=== PATIENT | female | born 1975 | race Two or more races ===

== ENCOUNTER 2024-11-04 01:32 | Emergency (ER) | payer OTHER, SELFPAY ==
[2024-11-04 01:36] VITALS: BMI 30.4
[2024-11-04 01:48] VITALS: BP 120/86; PULSE 82; RESP 20; TEMP 36.8; O2SAT 97
--- NOTE | 2024-11-04 02:07 | EDNOTE_ITS ---
ED Headache RME/HPI General Chief Complaint: Headache Stated Complaint: headache, R ear pain Time Seen by Provider: 11/04/24 01:52 Source: patient Arrival date/time: 11/04/24 01:32 49-year-old female presents emergency department complaining of headache and right ear pain with drainage that is been ongoing for several days. Patient denies any fever, chills, vomiting, shortness of breath, visual changes, dizziness, or any other associated symptom. Mode of arrival: ambulatory Limitations: no limitations Related Data Previous Rx's ?Medication ?Instructions ?Recorded Phenazopyridine * (PYRIDIUM *) 200 mg PO TIDPC Urinary Tract 02/23/17 Infection #6 tabs acetaminophen 500 mg capsule 500 mg PO Q6H PRN pain #3 0 caps 11/04/24 amoxicillin 875 mg tablet 875 mg PO BID 7 days #14 tab s 11/04/24 ibuprofen 800 mg tablet 800 mg PO TID PRN fever or p ain 11/04/24 #30 tabs ofloxacin 0.3 % ear drops 10 drp otic (ear) QDAY 7 day s #5 mL 11/04/24 Allergies Allergy/AdvReac Type Severity Reaction Status Date / Time No Known Allergies Allergy Unknown Uncoded 04/14/19 12:20 Review of Systems Review of Systems Systems Reviewed: All systems reviewed, normal except as documented Constitutional Constitutional: Reports system reviewed and no additional complaints, except as documented, Denies body ache(s), Denies chills, Denies fever(s) and Reports headache(s) Eyes Eyes: Reports system reviewed and no additional complaints, except as documented and Denies change in vision ENT Ears, Nose, Mouth, and Throat: Reports system reviewed and no additional complaints, except as documented, Denies disequilibrium, Denies dizziness, Reports ear discharge, Reports otalgia, Reports headache(s), Denies sore throat and Denies vertigo Cardiovascular Cardiovascular: Reports system reviewed and no additional complaints, except as documented, Denies chest pain and Denies dyspnea Respiratory Respiratory: Reports system reviewed and no additional complaints, except as documented, Denies chest congestion, Denies cough and Denies dyspnea Gastrointestinal Gastrointestinal: Reports system reviewed and no additional complaints, except as documented, Denies abdominal pain, Denies nausea and Denies vomiting Musculoskeletal Musculoskeletal: Reports system reviewed and no additional complaints, except as documented, Denies abnormal gait and Denies arthralgias Integumentary/Breasts Skin/Breast: Reports system reviewed and no additional complaints, except as doc umented, Denies erythema, Denies rash and Denies wounds Neurologic Neurologic: Reports system reviewed and no additional complaints, except as documented, Denies abnormal gait, Denies disequilibrium, Denies dizziness, Reports headache(s) and Denies vertigo Past Medical History Past Medical History CARDIAC: Negative Congestive Heart Failure RESPIRATORY: Negative Chronic Obstructive Pulmonary Disease (COPD) GENITOURINARY: Negative Renal Disease ENDOCRINE: Negative Diabetes Mellitus Type 1 or Diabetes Mellitus Type 2 Social History SMOKING STATUS: Never smoker ED Exam General Limitations: Present no limitations General appearance: Present alert and in no apparent distress Head Head exam: Present atraumatic Eye Eye exam: Present normal appearance, PERRL and EOMI ENT ENT exam: Present normal exam, normal oropharynx and mucous membranes moist Expanded ENT Exam External ear exam: Present normal external inspection TM/Canal exam: Right TM: erythema, bulging, canal discharge and canal tenderness Neck Neck exam: Present normal inspection, full ROM and trachea midline Chest Chest inspection: Present normal inspection and symmetric chest wall rise Respiratory Respiratory exam: Present normal lung sounds bilaterally Cardiovascular Cardiovascular exam: Present regular rate, normal rhythm and normal heart sounds Abdominal Exam Abdominal exam: Present soft and normal bowel sounds Extremities Exam Extremities exam: Present normal inspection and full ROM Back Exam Back exam: Present normal inspection and full ROM Neurological Exam Neurological exam: Present alert, oriented X3 and CN II-XII intact Psychiatric Psychiatric exam: Present normal affect and normal mood Skin Skin exam: Present warm, dry, intact and normal color Course Quality Measures none Orders Category Date Time Status HYDROcodone*/APAP 5/325 [[place] 5/325] Med 11/04/24 02:06 Discontinued 1 tab PO X1 ONE Ketorolac Inj [Toradol Inj] Med 11/04/24 02:06 Discontinued 30 mg IM X1 ONE Vital Signs Vital signs: Vital Signs Temperature 98.2 F 11/04/24 01:48 Pulse Rate 82 11/04/24 01:48 Respiratory Rate 20 11/04/24 01:48 Blood Pressure 120/86 H 11/04/24 01:48 Pulse Oximetry (%) 97 11/04/24 01:48 Oxygen Delivery Method Room Air 11/04/24 01:48 97% room air within normal limits Headache MDM Narrative MDM Narrative:: 49-year-old female presents emergency department complaining of headache and right ear pain with drainage that is been ongoing for several days. Patient denies any fever, chills, vomiting, shortness of breath, visual changes, dizziness, or any other associated symptom. On exam patient's right ear canal erythematous with yellow-white drainage and erythema including the tympanic membrane which was also observed to be bulging we will treat with antibiotics orally and otic for otitis media and externa. Patient appears nontoxic and is hemodynamically stable. Patient data External records reviewed:: [facility] previous records Clinical information provided by:: patient Social determinants that could affect healthcare access:: none Patient has the following chronic illnesses:: None How is presenting disease/condition affected by chronic disease/condition?: no chronic disease Evaluation data The following diagnostics were reviewed and interpreted by me:: other (specify) (None) Lab and/or radiology exams considered but not ordered:: None Interpretation Summary: None Medications / Prescriptions Medications or Prescriptions considered but not ordered:: Ordered Medication administrations:: Medication Administration History Discontinued Medications Hydrocodone Bitart/Acetaminophen (Hydrocodone/Apap 5/325 Tablet) 1 tab PO X1 ONE Stop: 11/04/24 02:07 Last Admin: 11/04/24 03:18 Dose: 1 tab Documented By: MINDY Ketorolac Tromethamine (Ketorolac Inj 60 Mg/2 Ml Vial) 30 mg IM X1 ONE Stop: 11/04/24 02:07 Last Admin: 11/04/24 03:19 Dose: 30 mg Documented By: MINDY Given Consultations Consultation(s) initiated? (list below): No Diagnosis Differential diagnosis headache: migraine, tension headache, subarachnoid hemorrhage, headache, meningitis, sinusitis and postconcussion syndrome Most likely diagnosis given after review of the tests above:: Acute otitis media Otitis externa Admission Indicated Admission indicated?: not indicated Admission Request Was there a request for admission?: No Disposition Plan Disposition Plan: Discharge Discharge Attestation Discharge Attestation: The patient and all family members were given an opportunity to ask questions and understood the discharge instructions. Discharge instructions specifically effects, indications for sooner follow up or return to the emergency department, and the expected course of current diagnosis. Patient condition: Stable Discharge Plan Plan Patient Disposition: HOME (Self Care) Disposition Comment: Stable Prescriptions/Referrals Prescriptions/Med Rec: New amoxicillin 875 mg tablet 875 mg PO BID 7 Days Qty: 14 0RF ofloxacin 0.3 % drops 10 drp otic (ear) QDAY 7 Days Qty: 5 0RF ibuprofen 800 mg tablet 800 mg PO TID PRN (Reason: fever or pain) Qty: 30 0RF acetaminophen 500 mg capsule 500 mg PO Q6H PRN (Reason: pain) Qty: 30 0RF No Action Phenazopyridine * (PYRIDIUM *) 200 MG tablet 200 mg PO TIDPC Qty: 6 0RF Problem List Clinical Impression: Otitis media, Otitis externa Patient/Caregiver Discharge Instructions Discharge Activity: activity as tolerated Education Materials: ED Otitis Media Antibiotic ..., ED External Ear Infection (Adult) Additional Instructions: Take medication as prescribed. Use eardrops as prescribed. Take Tylenol or ibuprofen as needed for fever or pain. Close follow-up with primary care provider in 2 to 3 days for reevaluation of right ear. Return to emergency department for any worsening symptoms or as needed. Print Language: Nigerien Stand Alone Forms: [facility] Award Info., Patient Portal Info Letter PA/ERADICATOR Supervising Physician PA/ERADICATOR Supervising Physician: Dr. Nicole
[2024-11-04] MEDS: HYDROcodone/APAP 5/325 TABLET 1 TAB PO (03:18)
[2024-11-04] MEDS: KETOROLAC INJ 60 MG/2 ML VIAL 30 MG IM (03:19)
== END 2024-11-04 03:41 | disposition home or self-care (01) ==
LOC: SERX 02:12
PROVIDERS: Emergency Provider Emergency Medicine; PCP Nurse Practitioner Family
DX: H66.91 Otitis media, unspecified, right ear (principal); H60.91 Unspecified otitis externa, right ear; R51.9 Headache, unspecified
CPT/HCPCS: 96372; 99283; J1885; A9270

== ENCOUNTER 2025-07-17 10:35 | Emergency (ER) | payer SELFPAY ==
[2025-07-17 10:57] VITALS: BP 138/88; PULSE 80; RESP 19; TEMP 36.6; O2SAT 97; BMI 30.4
--- NOTE | 2025-07-17 11:23 | XR_ITS ---
Examination: CT abdomen and pelvis without contrast. Coronal 3-D reconstructions. Sagittal 2-D reconstructions. Date and time of exam: July 17, 2025 at 1255 hours INDICATIONS: Bilateral flank pain beginning today CTDI: vol (mGy): 19.2 DLP: (mGycm): 735 Technique: Axial images of the abdomen have been obtained, 3 mm slice thickness Intravenous contrast material has not been administered. Low dose protocols were performed. One or more of the following dose reduction techniques were used; automated exposure control, adjustment of the mA and/or KV according to patient size, use of iterative reconstruction technique. Findings: No focal liver or splenic lesions No gallstones No pancreatic or adrenal mass. Mild dilatation of the renal collecting systems with wall thickening Normal appendix Intrauterine device satisfactory position No ureteral calculi No bladder mass or bladder calculi IMPRESSION: Findings most consistent with bilateral urinary tract infection, no ureteral or bladder calculi Normal appendix
[2025-07-17 11:43] LABS: Collection Type, Urine Clean Catch
[2025-07-17 11:54] LABS: Bacteria,Urine 1+; Bilirubin,Urine Negative (Negative); Blood,Urine 2+ (Negative); Budding Yeast,Urine Present; Color,Urine Yellow (Lt Yel-Yel); Glucose, Urine Negative (Negative); Ketones,Urine Negative (Negative); Leukocyte Esterase,Urine Positive (Negative); Nitrite,Urine Negative (Negative); PH,Urine 7.0 (5.0-7.0); Protein,Urine 2+ (Neg - Trace); RBC,Urine 56 /hpf (0-3); Specific Gravity,Urine 1.016 (1.001-1.035); Squamous Epithelial Cell,Urine 2 /hpf (0-5); Urobilinogen,Urine Negative mg/dL (0.0-1.0); WBC,Urine 896 /hpf (0-5)
[2025-07-17 11:59] LABS: Clarity,Urine Cloudy (Clear/Hazy); Culture Indicated,Urine Yes
[2025-07-17 12:40] LABS: HCG Qualitative,Urine Negative
--- NOTE | 2025-07-17 13:01 | XR_ITS ---
EXAMINATION: PA chest single view TECHNIQUE: Upright PA chest single view Date and time: July 17, 2025, 1334 hours INDICATIONS: Chest pain beginning 2 days ago. FINDINGS: Normal heart size. Lungs are clear. Osseous structures are intact. IMPRESSION: No active disease
--- NOTE | 2025-07-17 13:01 | EKG_ITS ---
[facility] Test Date: 2025-07-17 Pat Name: ALESSANDRO MONZON Department: Room: - Gender: Female [employer]: : [id number] Requested By: Richy Figueredo Order Number: [id number] Reading MD: Richy Figueredo Measurements Intervals [place] Rate: 90 P: 47 DE: 164 QRS: 1 QRSD: 88 T: 59 QT: 337 QTc: 414 Interpretive Statements SINUS RHYTHM No previous ECG available for comparison /store/S0/[id number]/ecg/[id number].pdf
[2025-07-17 13:43] LABS: Basophils # (Auto) 0.0 Thou/mm3 (0.0-0.2); Basophils % (Auto) 0 % (0-2.5); Eosinophils # (Auto) 0.0 Thou/mm3 (0.0-0.5); Eosinophils % (Auto) 0 % (0-10); Hematocrit 42.5 % (36.0-46.0); Hemoglobin 13.8 g/dL (12.0-16.0); Immature Granulocytes Auto 0.01 Thou/mm3 (0.00-0.00); Lymphocytes # (Auto) 1.5 Thou/mm3 (1.0-4.8); Lymphocytes % (Auto) 18 % (10-50); Mean Corpuscular HGB Conc 32.5 g/dl (31.0-37.0); Mean Corpuscular Hemoglobin 30.1 pg (25.0-35.0); Mean Corpuscular Volume 93 fL (80-100); Monocytes # (Auto) 0.6 Thou/mm3 (0.0-0.8); Monocytes % (Auto) 7 % (0-12); Neutrophils # (Auto) 6.3 Thou/mm3 (1.8-7.7); Neutrophils % (Auto) 75 % (37-80); Nucleated Red Blood Cell # 0.00 Thou/mm3 (0.00-0.00); Nucleated Red Blood Cell % 0 /100 WBC (0); Platelet Count 231 Thou/mm3 (140-440); RDW Standard Deviation 44.2 fL (36.4-46.3); Red Blood Count 4.59 Miln/mm3 (4.00-5.20); White Blood Count 8.4 Thou/mm3 (3.6-11.0)
[2025-07-17 13:59] LABS: INR 0.9 (0.9-1.3); Partial Thromboplastin Time 29.4 Seconds (22.0-36.0); Prothrombin Time 10.0 Seconds (9.0-12.2)
[2025-07-17 14:02] LABS: Alanine Aminotransferase 22 U/L (10-49); Albumin, Serum 4.9 gm/dL (3.5-5.0); Albumin/Globulin Ratio 1.8 (1.2-2.2); Alkaline Phosphatase 108 U/L (46-116); Anion Gap 9 (7-16); Aspartate Amino Transferase 44 U/L (0-34); BUN/Creatinine Ratio 13 Ratio (12-20); Bilirubin,Total 0.3 mg/dL (0.3-1.2); Blood Urea Nitrogen 12 mg/dL (9-23); Calcium 9.6 mg/dL (8.3-10.6); Calcium (Corrected) 9.6 mg/dL (8.5-10.1); Carbon Dioxide 28.9 mMol/L (20.0-31.0); Chloride 102 mMol/L (98-107); Creatinine (Component) 0.9 mg/dL (0.6-1.3); Estimated Creatinine Clearance 86.1 mL/min (>60); Globulin 2.7 gm/dL (2.3-3.5); Glucose 133 mg/dL (74-106); Osmolality,Calculated 281 (275-295); Potassium 3.9 mMol/L (3.4-5.1); Sodium 140 mMol/L (136-145); Total Protein 7.6 gm/dL (5.7-8.2); eGFR > 60 See Note
[2025-07-17] MEDS: ACETAMINOPHEN 325 MG TABLET 650 MG PO (14:23)
[2025-07-17 16:08] VITALS: BP 125/85; PULSE 73; RESP 18; O2SAT 94
[2025-07-17 16:11] VITALS: BP 125/85; PULSE 71; RESP 18; TEMP 36.8; O2SAT 96
[2025-07-17] MEDS: SODIUM CHLORIDE 0.9% 1000 ML 1,000 ML 999 ML IV (16:15)
[2025-07-17] MEDS: cefTRIAXone 2 GM in SODIUM CHLORIDE 0.9% (Popper) 50 ML IV (16:17)
[2025-07-17] MEDS: ONDANSETRON INJ 2 MG/ML INJ 2 ML 4 MG IVP (16:56)
[2025-07-17] MEDS: KETOROLAC INJ 30 MG/ML VIAL 15 MG IVP (16:57)
[2025-07-17] MEDS: MORPHINE SULF INJ 4 MG/ML VIAL IVP (16:58)
[2025-07-17 17:03] VITALS: BP 136/91; PULSE 65; RESP 18; O2SAT 99
--- NOTE | 2025-07-17 17:12 | PD.EDBACK ---
ED Back Injury Pain RME/HPI General Chief Complaint: Urogenital-Female Stated Complaint: BILATERAL FLANK PAIN SINCE YESTERDAY Arrival date/time: 07/17/25 10:35 Limitations: no limitations RME / HPI RME / HPI Narrative: 50 year old female with history of diabetes presents to the ED for evaluation of bilateral flank pain beginning 2 days and progressively worsening. Described as aching in sensation, rating as moderate. Pain aggravated with movements and minimally improved with rest. Accompanied by dysuria and suprapubic abdominal pain. Denies fevers, chills, sweats, chest pain, cough, shortness of breath, vomiting, diarrhea, or hematuria. Related Data Previous Rx's ?Medication ?Instructions ?Recorded Phenazopyridine * (PYRIDIUM *) 200 mg PO TIDPC Urinary Tract 02/23/17 Infection #6 tabs acetaminophen 500 mg capsule 500 mg PO Q6H PRN pain #30 caps 11/04/24 ibuprofen 800 mg tablet 800 mg PO TID PRN fever or pain 11/04/24 #30 tabs hydrocodone 5 mg-acetaminophen 325 1 tab PO Q8H back pain #14 tabs 07/17/25 mg tablet Allergies Allergy/AdvReac Type Severity Reaction Status Date / Time No Known Allergies Allergy Unknown Uncoded 07/17/25 10:38 Review of Systems Review of Systems Systems Reviewed: All systems reviewed, normal except as documented Past Medical History Past Medical History GASTROINTESTINAL: Positive Ulcer REPRODUCTIVE: Positive Previous Pregnancies ENT: Positive Ear Infection ENDOCRINE: Positive Diabetes Mellitus Type 2 Social History SMOKING STATUS: Never smoker ED Exam General Limitations: Present no limitations General appearance: Present alert and in no apparent distress Head Head exam: Present atraumatic, normocephalic and normal inspection Eye Eye exam: Present normal appearance, PERRL and EOMI ENT ENT exam: Present normal exam, normal oropharynx and mucous membranes moist Neck Neck exam: Present normal inspection, full ROM and trachea midline Chest Chest inspection: Present normal inspection and symmetric chest wall rise Respiratory Respiratory exam: Present normal lung sounds bilaterally Cardiovascular Cardiovascular exam: Present regular rate, normal rhythm and normal heart sounds Abdominal Exam Abdominal exam: Present soft and normal bowel sounds Extremities Exam Extremities exam: Present normal inspection and full ROM Back Exam Back exam: Present normal inspection, full ROM and other (heel tap negative, no CVAT); Absent CVA tenderness (R) or CVA tenderness (L) Neurological Exam Neurological exam: Present alert, oriented X3 and CN II-XII intact Psychiatric Psychiatric exam: Present normal affect and normal mood Skin Skin exam: Present warm, dry, intact and normal color Course Quality Measures none Orders Category Date Time Status Public Health Technologist NOW Care 07/17/25 13:01 Active Continuous Pulse Oximetry NOW Care 07/17/25 13:01 Completed EKG (ED ONLY) *Do not use* NOW Care 07/17/25 13:01 Completed Insert IV NOW Care 07/17/25 13:[address] abdomen pelvis wo con Stat Exams 07/17/25 11:23 Completed EKG (ED Only) Stat Exams 07/17/25 13:01 Draft XR chest 1V portable Stat Exams 07/17/25 13:01 Completed CBC Stat Lab 07/17/25 13:21 Completed Comprehensive Metabolic Panel Stat Lab 07/17/25 13:21 Completed HCG Qualitative,Urine Stat Lab 07/17/25 11:15 Completed Partial Thromboplastin Time Stat Lab 07/17/25 13:21 Completed Prothrombin Time with INR Stat Lab 07/17/25 13:21 Completed Urinalysis, C/S if Indicated Stat Lab 07/17/25 11:15 Completed Urine Culture Stat Lab 07/17/25 11:15 Received Acetaminophen Tab [Tylenol Tab] Med 07/17/25 12:59 Discontinued 650 mg PO X1 ONE Ketorolac Inj [Toradol Inj] Med 07/17/25 16:32 Discontinued 15 mg IVP X1 ONE Morphine* Inj Med 07/17/25 16:32 Discontinued 4 mg IVP X1 ONE Ondansetron Inj [Zofran Inj] Med 07/17/25 16:32 Discontinued 4 mg IVP X1 ONE Sodium Chloride 0.9% 1000 ml [Ns] 1,000 ml Med 07/17/25 13:01 Discontinued IV 999 mls/hr cefTRIAXone [Rocephin] 2 gm Med 07/17/25 13:01 Discontinued SODIUM CHLORIDE 0.9% (Popper) [Ns 0.9% (P)] 50 ml IV X1 Vital Signs Vital signs: Vital Signs Temperature 97.8 F 07/17/25 10:57 Pulse Rate 80 07/17/25 10:57 Respiratory Rate 19 07/17/25 10:57 Blood Pressure 138/88 H 07/17/25 10:57 Pulse Oximetry (%) 97 07/17/25 10:57 Oxygen Delivery Method Room Air 07/17/25 10:57 Pulse ox is 97% on room air which is adequate. Back Pain / Injury MDM Narrative MDM Narrative:: IMeaghan, nelida scribing for and in the presence of Dr. Da Silva. Labs and imaging reviewed. Urinalysis shows WBC of 896 which is quite elevated. Patient is afebrile, does not have elevated WBC on CBC or pyelonephritis on CT. We discussed possibility of admission vs going home and returning tomorrow for second dose of IV abx. The patient reports she would prefer to go home and return tomorrow. Patient remains clinically stable throughout the emergency department visit. Patient is amenable to discharge. Strict return precautions were outlined. Patient data External records reviewed:: [facility] previous records Clinical information provided by:: patient Social determinants that could affect healthcare access:: none Patient has the following chronic illnesses:: DM How is presenting disease/condition affected by chronic disease/condition?: uneffected by Evaluation data The following diagnostics were reviewed and interpreted by me:: lab results, radiology exam(s) and EKG tracing(s) (EKG @ 13:11. NSR, rate 90, no STEMI. ) Lab and/or radiology exams considered but not ordered:: None Interpretation Summary: Ordering Physician: Richy Da Silva MD Date of Service: 07/17/25 Procedure(s): CT abdomen pelvis wo con Accession Number(s): [id number] cc: Richy Da Silva MD; Roberth Bhatia MD; NO PRIMARY/FAMILY,PHYSICIAN~ Examination: CT abdomen and pelvis without contrast. Coronal 3-D reconstructions. Sagittal 2-D reconstructions. Date and time of exam: July 17, 2025 at 1255 hours INDICATIONS: Bilateral flank pain beginning today CTDI: vol (mGy): 19.2 DLP: (mGycm): 735 Technique: Axial images of the abdomen have been obtained, 3 mm slice thickness Intravenous contrast material has not been administered. Low dose protocols were performed. One or more of the following dose reduction techniques were used; automated exposure control, adjustment of the mA and/or KV according to patient size, use of iterative reconstruction technique. Findings: No focal liver or splenic lesions No gallstones No pancreatic or adrenal mass. Mild dilatation of the renal collecting systems with wall thickening Normal appendix Intrauterine device satisfactory position No ureteral calculi No bladder mass or bladder calculi IMPRESSION: Findings most consistent with bilateral urinary tract infection, no ureteral or bladder calculi Normal appendix Dictated By: Roberth Bhatia MD Signed By: <Electronically signed by Roberth Bhatia MD in OV> 07/17/25 1416 Ordering Physician: Richy Da Silva MD Date of Service: 07/17/25 Procedure(s): XR chest 1V portable Accession Number(s): [id number] cc: Richy Da Silva MD; Roberth Bhatia MD; NO PRIMARY/FAMILY,PHYSICIAN~ EXAMINATION: PA chest single view TECHNIQUE: Upright PA chest single view Date and time: July 17, 2025, 1334 hours INDICATIONS: Chest pain beginning 2 days ago. FINDINGS: Normal heart size. Lungs are clear. Osseous structures are intact. IMPRESSION: No active disease Dictated By: Roberth Bhatia MD Signed By: <Electronically signed by Roberth Bhatia MD in OV> 07/17/25 1402 Medications / Prescriptions Medications or Prescriptions considered but not ordered:: None Medication administrations:: Medication Administration History Discontinued Medications Acetaminophen (Acetaminophen 325 Mg Tablet) 650 mg PO X1 ONE Stop: 07/17/25 13:00 Last Admin: 07/17/25 14:23 Dose: 650 mg Documented By: VL Sodium Chloride (Ns) 1,000 mls @ 999 mls/hr IV .Q1H1M ONE Stop: 07/17/25 14:01 Last Admin: 07/17/25 16:15 Dose: 999 mls/hr Documented By: BY Ceftriaxone Sodium 2 gm/ (Sodium Chloride) 50 mls @ 100 mls/hr IV X1 ONE Stop: 07/17/25 13:30 Last Admin: 07/17/25 16:17 Dose: 100 mls/hr Documented By: BY Ketorolac Tromethamine (Ketorolac Inj 30 Mg/Ml Vial) 15 mg IVP X1 ONE Stop: 07/17/25 16:33 Last Admin: 07/17/25 16:57 Dose: 15 mg Documented By: BY Morphine Sulfate (Morphine Sulf Inj 4 Mg/Ml Vial) 4 mg IVP X1 ONE Stop: 07/17/25 16:33 Last Admin: 07/17/25 16:58 Dose: 4 mg Documented By: BY Ondansetron HCl (Ondansetron Inj 2 Mg/Ml Inj 2 Ml) 4 mg IVP X1 ONE; Protocol Stop: 07/17/25 16:33 Last Admin: 07/17/25 16:56 Dose: 4 mg Documented By: BY See above Consultations Consultation(s) initiated? (list below): No Diagnosis Most likely diagnosis given after review of the tests above:: UTI back pain Admission Indicated Admission indicated?: not indicated Admission Request Was there a request for admission?: No Disposition Plan Disposition Plan: Discharge Discharge Attestation Discharge Attestation: The patient and all family members were given an opportunity to ask questions and understood the discharge instructions. Discharge instructions specifically effects, indications for sooner follow up or return to the emergency department, and the expected course of current diagnosis. Patient condition: Stable Discharge Plan Plan Patient Disposition: HOME (Self Care) Patient condition on transfer: Stable Prescriptions/Referrals Prescriptions/Med Rec: New hydrocodone-acetaminophen 5-325 mg tablet 1 tab PO Q8H MDD 3 Qty: 14 0RF No Action Phenazopyridine * (PYRIDIUM *) 200 MG tablet 200 mg PO TIDPC Qty: 6 0RF ibuprofen 800 mg tablet 800 mg PO TID PRN (Reason: fever or pain) Qty: 30 0RF acetaminophen 500 mg capsule 500 mg PO Q6H PRN (Reason: pain) Qty: 30 0RF Referrals: No Primary/Family,Physician [Primary Care Provider] - In 1 week Problem List Clinical Impression: Urinary tract infection, Back pain Patient/Caregiver Discharge Instructions Discharge Activity: activity as tolerated Education Materials: Urinary Tract Infections in Women Additional Instructions: Return to the emergency department tomorrow morning for reassessment and IV antibiotics. Take your medications as prescribed. No driving while taking hydrocodone. Print Language: Gibraltarian Stand Alone Forms: [facility] Award Info., Patient Portal Info Letter
[2025-07-17 17:39] VITALS: BP 122/78; PULSE 57; RESP 18; O2SAT 96
== END 2025-07-17 17:43 | disposition home or self-care (01) ==
PROVIDERS: Emergency Provider Family Medicine
DX: N39.0 Urinary tract infection, site not specified (principal); E11.9 Type 2 diabetes mellitus without complications
CPT/HCPCS: 36415; 71045; 74176; 80053; 81001; 81025; 85025; 85610; 85730; 87077; 87086; 87186; 93005; 96365; 96375; 99283; J0696; J1885; J2270; J2405; J7030; J7050; A9270

== ENCOUNTER 2025-07-18 09:05 | Emergency (ER) | payer BC, SELFPAY ==
[2025-07-18 09:21] VITALS: BP 131/84; PULSE 65; RESP 19; TEMP 36.6; O2SAT 98; BMI 32.3
--- NOTE | 2025-07-18 09:25 | PD.EDFMALE ---
ED Female Urogenital RME/HPI General Chief complaint: Urogenital-Female Stated complaint: RETURNING FOR IV ABX, WAS HERE YESTERDAY Time Seen by Provider: 07/18/25 09:24 Arrival date/time: 07/18/25 09:05 50-year-old female presents to the Emergency Department today patient report she was told to return today for repeat dose of IV antibiotics patient was found to have bilateral UTI yesterday Limitations: no limitations Related Data Previous Rx's ?Medication ?Instructions ?Recorded Phenazopyridine * (PYRIDIUM *) 200 mg PO TIDPC Urinary Tract 02/23/17 Infection #6 tabs acetaminophen 500 mg capsule 500 mg PO Q6H PRN pain #30 caps 11/04/24 ibuprofen 800 mg tablet 800 mg PO TID PRN fever or pain 11/04/24 #30 tabs hydrocodone 5 mg-acetaminophen 325 1 tab PO Q8H back pain #14 tabs 07/17/25 mg tablet ciprofloxacin HCl 500 mg tablet 500 mg PO BID 7 days #14 tabs 07/18/25 Allergies Allergy/AdvReac Type Severity Reaction Status Date / Time No Known Allergies Allergy Unknown Uncoded 07/18/25 09:07 Review of Systems Review of Systems Systems Reviewed: All systems reviewed, normal except as documented Constitutional Constitutional: Reports system reviewed and no additional complaints, except as documented, Denies fever(s) and Denies headache(s) Eyes Eyes: Reports system reviewed and no additional complaints, except as documented and Denies blurry vision ENT Ears, Nose, Mouth, and Throat: Reports system reviewed and no additional complaints, except as documented, Denies headache(s), Denies nasal congestion and Denies nasal discharge Cardiovascular Cardiovascular: Reports system reviewed and no additional complaints, except as documented, Denies chest pain and Denies dyspnea Respiratory Respiratory: Reports system reviewed and no additional complaints, except as documented, Denies chest congestion, Denies cough and Denies dyspnea Gastrointestinal Gastrointestinal: Reports system reviewed and no additional complaints, except as documented and Denies abdominal pain Genitourinary Genitourinary: Reports system reviewed and no additional complaints, except as documented and Reports dysuria Integumentary/Breasts Skin/Breast: Reports system reviewed and no additional complaints, except as documented and Denies rash Neurologic Neurologic: Reports system reviewed and no additional complaints, except as documented, Reports as per HPI and Denies headache(s) Past Medical History Past Medical History CARDIAC: Negative Congestive Heart Failure RESPIRATORY: Negative Chronic Obstructive Pulmonary Disease (COPD) GASTROINTESTINAL: Positive Ulcer GENITOURINARY: Negative Renal Disease REPRODUCTIVE: Positive Previous Pregnancies MUSCULOSKELETAL: Negative Musculoskeletal Disorders ENT: Positive Ear Infection ENDOCRINE: Positive Diabetes Mellitus Type 2; Negative Diabetes Mellitus Type 1 Social History SMOKING STATUS: Never smoker ED Exam General Limitations: Present no limitations General appearance: Present alert and in no apparent distress Head Head exam: Present atraumatic, normocephalic and normal inspection Eye Eye exam: Present normal appearance, PERRL and EOMI; Absent conjunctival injection ENT ENT exam: Present normal exam, normal oropharynx and mucous membranes moist Neck Neck exam: Present normal inspection, full ROM and trachea midline Chest Chest inspection: Present normal inspection and symmetric chest wall rise Respiratory Respiratory exam: Present normal lung sounds bilaterally Cardiovascular Cardiovascular exam: Present regular rate, normal rhythm and normal heart sounds Abdominal Exam Abdominal exam: Present soft and normal bowel sounds; Absent distention, tenderness, guarding, rebound, rigidity, Escoto's sign or tenderness at McBurney's Point Abdominal tenderness: Absent RUQ or RLQ Extremities Exam Extremities exam: Present normal inspection and full ROM Back Exam Back exam: Present normal inspection and full ROM Neurological Exam Neurological exam: Present alert, oriented X3 and CN II-XII intact Psychiatric Psychiatric exam: Present normal affect and normal mood Skin Skin exam: Present warm, dry, intact and normal color Course Quality Measures none Orders Category Date Time Status Ketorolac Inj [Toradol Inj] Med 07/18/25 09:25 Discontinued 30 mg IM X1 ONE Lidocaine 1% 20 ml [Xylocaine 1% 20 ML] Med 07/18/25 09:25 Discontinued 2.1 ml INFL X1 ONE cefTRIAXone [Rocephin] Med 07/18/25 09:25 Discontinued 1,000 mg IM X1 ONE Vital Signs Vital signs: Vital Signs Temperature 97.9 F 07/18/25 09:21 Pulse Rate 65 07/18/25 09:21 Respiratory Rate 19 07/18/25 09:21 Blood Pressure 131/84 H 07/18/25 09:21 Pulse Oximetry (%) 98 07/18/25 09:21 Oxygen Delivery Method Room Air 07/18/25 09:21 O2 saturation 98% on room air within normal limits Urogenital - Female MDM Narrative MDM Narrative:: 50-year-old female presents to the Emergency Department today patient report she was told to return today for repeat dose of IV antibiotics patient was found to have bilateral UTI yesterday Patient does report symptom improvement reports no fever nausea or vomiting I reviewed patient's lab work and imaging from yesterday Patient given a dose of Rocephin here as well as Toradol Patient discharged with antibiotics and pain medication Patient discharged home in no distress to follow-up with primary care doctor in the next 24 to 48 hours and for any worsening symptoms to return to the ER immediately Patient data External records reviewed:: [facility] previous records Clinical information provided by:: patient Social determinants that could affect healthcare access:: none Patient has the following chronic illnesses:: See history How is presenting disease/condition affected by chronic disease/condition?: uneffected by Evaluation data The following diagnostics were reviewed and interpreted by me:: lab results and radiology exam(s) Lab and/or radiology exams considered but not ordered:: Labs radiology obtained yesterday Interpretation Summary: Reviewed by me Medications / Prescriptions Medications or Prescriptions considered but not ordered:: Given Medication administrations:: Medication Administration History Discontinued Medications Ceftriaxone Sodium (Ceftriaxone Sod Inj 1,000 Mg Vial) 1,000 mg IM X1 ONE Stop: 07/18/25 09:26 Last Admin: 07/18/25 09:44 Dose: 1,000 mg Documented By: OA Ketorolac Tromethamine (Ketorolac Inj 30 Mg/Ml Vial) 30 mg IM X1 ONE Stop: 07/18/25 09:26 Last Admin: 07/18/25 09:44 Dose: 30 mg Documented By: OA Lidocaine HCl (Lidocaine Hcl 1% 20 Ml Vial) 2.1 ml INFL X1 ONE Stop: 07/18/25 09:26 Last Admin: 07/18/25 09:45 Dose: 2.1 ml Documented By: OA Given Consultations Consultation(s) initiated? (list below): No Diagnosis Urogenital Female Differential Diagnosis: urinary tract infection and cystitis Most likely diagnosis given after review of the tests above:: UTI Admission Indicated Admission indicated?: not indicated Admission Request Was there a request for admission?: No Disposition Plan Disposition Plan: Discharge Discharge Attestation Discharge Attestation: The patient and all family members were given an opportunity to ask questions and understood the discharge instructions. Discharge instructions specifically effects, indications for sooner follow up or return to the emergency department, and the expected course of current diagnosis. Patient condition: Stable Discharge Plan Plan Patient Disposition: HOME (Self Care) Discharge Disposition comment: Stable Prescriptions/Referrals Prescriptions/Med Rec: New ciprofloxacin HCl 500 mg tablet 500 mg PO BID 7 Days Qty: 14 0RF No Action Phenazopyridine * (PYRIDIUM *) 200 MG tablet 200 mg PO TIDPC Qty: 6 0RF hydrocodone-acetaminophen 5-325 mg tablet 1 tab PO Q8H MDD 3 Qty: 14 0RF ibuprofen 800 mg tablet 800 mg PO TID PRN (Reason: fever or pain) Qty: 30 0RF acetaminophen 500 mg capsule 500 mg PO Q6H PRN (Reason: pain) Qty: 30 0RF Problem List Clinical Impression: Urinary tract infection Patient/Caregiver Discharge Instructions Education Materials: Understanding Urinary Tract ... Additional Instructions: Please follow up with your primary care doctor in the next 24-48hrs for any worsening symptoms return here immediately Print Language: Malaysian Stand Alone Forms: [place] Award Info., Work/School Release, Patient Portal Info Letter PA/SNOW REMOVER Supervising Physician PA/SNOW REMOVER Supervising Physician: dr lynn
[2025-07-18] MEDS: KETOROLAC INJ 30 MG/ML VIAL IM (09:44)
[2025-07-18] MEDS: cefTRIAXone SOD INJ 1,000 MG VIAL 1000 MG IM (09:44)
[2025-07-18] MEDS: LIDOCAINE HCL 1% 20 ML VIAL 2.1 ML INFL (09:45)
== END 2025-07-18 10:01 | disposition home or self-care (01) ==
LOC: SERX 09:48
PROVIDERS: Emergency Provider Nurse Practitioner Primary Care; PCP Nurse Practitioner Family
DX: N39.0 Urinary tract infection, site not specified (principal)
CPT/HCPCS: 99283; J0696; J1885; J3490